=== PATIENT | female | born 1940 | race Caucasian/White ===

== ENCOUNTER 2023-06-22 09:12 | Day surgery (SDC) | payer MEDICARE, MEDICAID ==
[~2023-06-22] VITALS: Ht 156.2 cm; Wt 36.4 kg
[2023-06-22] VITALS (8 sets, daily range): BP systolic 78–115; BP diastolic 44–66; PULSE 46–69; RESP 10–16; O2SAT 96–100
[~2023-06-22 09:12] MED LIST: LEVO50TA8 PO
[2023-06-22] MEDS ORDERED: fentaNYL/PF 50MCG/1 ML 2ML syringe IV PRN (09:25)
[2023-06-22] MEDS ORDERED: simethicone 40mg/0.6ml oral drops 30ml PO ONE (09:25)
[2023-06-22] MEDS ORDERED: MIDAZolam 1 MG/ML 5ML VIAL IV PRN (09:25)
[2023-06-22] MEDS ORDERED: normal saline 1000ml 1,000 ML IV ONE (09:25)
[2023-06-22] MEDS ORDERED: LEVO75CA5 PO (09:32)
[2023-06-22] MEDS ORDERED: diphenhydrAMINE 50 mg/ml inj IV PRN (09:35)
== END 2023-06-22 12:10 | disposition home or self-care (01) ==
LOC: GI LAB 09:12
PROVIDERS: ATTEND Internal Medicine Gastroenterology
DX: K92.1 Melena (principal); Z88.0 Allergy status to penicillin; Z88.1 Allergy status to other antibiotic agents
CPT/HCPCS: 45378; 99153; G0500; J1200; J2250; J3010; J7030; Z7512; 99152; A4620

== ENCOUNTER 2024-07-12 11:13 | Outpatient (CLI) | payer MEDICARE, MEDICAID ==
[~2024-07-12 11:13] MED LIST changes: +FURO20TA4 PO; +LACT1CAP26 PO; +MIDO10TA3 PO; +PANT40TA54 PO
== END 2024-07-12 23:59 | disposition home or self-care (01) ==
LOC: RAD 11:13
PROVIDERS: ATTEND Nurse Practitioner
DX: R13.10 Dysphagia, unspecified (principal); R63.30 Feeding difficulties, unspecified
CPT/HCPCS: 74230

== ENCOUNTER 2024-09-20 09:17 | Day surgery (SDC) | payer MEDICARE, MEDICAID ==
[~2024-09-20] VITALS: Ht 157.5 cm; Wt 40.9 kg
[2024-09-20] MEDS ORDERED: normal saline 1000ml 1,000 ML IV SCH (10:05)
[2024-09-20] MEDS ORDERED: zinc oxide ointment 30gm tube TP ONE (10:25)
[2024-09-20] MEDS ORDERED: neomy sulf/bacitrac zn/polymixin b oint 28.4 gm tube TP ONE (10:25)
--- NOTE | 2024-09-20 10:53 | PROGRESS NOTE ---
H&P - Interval Note Providers to CC ~ Patient examined and condition: Yes Interval changes as follows: No procedure done here at [facility] today due to mis schedule of this GI patient from Dr Hale office. Has inflamed exit site of G tube and desires removal. D/W his office and he will coordinate removal and further treatment of wound at exit. Zn oxide and triple abx ointment given to the patient. NOELLE BYRNES MD Sep 20, 2024 10:53
== END 2024-09-20 11:00 | disposition home or self-care (01) ==
LOC: SSTAY O 09:17
PROVIDERS: ATTEND Nurse Practitioner
DX: Z93.1 Gastrostomy status (principal); Z53.8 Procedure and treatment not carried out for other reasons
CPT/HCPCS: A6258; A6449